=== PATIENT | female | born 1975 | race Hispanic/Latino ===

== ENCOUNTER 2016-05-03 13:02 | Emergency (ER) | payer OTHER ==
[~2016-05-03] VITALS: Ht 172.7 cm; Wt 89.4 kg
[~2016-05-03 13:02] MED LIST: AMOXIL500 MG PO; AUGMENTIN 875-1 EACH PO; CYCLOBENZAPRINE5 M2 PO; FLEXERIL PO; GUAIFENESIN-COD10 ML PO; METRONIDAZOLE500 MG PO; NEXIUM 40MG40 MG PO; PERCOCET 5-3251 EACH PO; PRENATAL1 TA2 PO
--- NOTE | 2016-05-03 15:28 | ED GENERAL ADULT ---
History of Present Illness General Chief Complaint: General Adult Stated Complaint: LUNDBERG X 4DAYS, R SIDED LOW BACK PAIN,CONSTIPATION Source: patient Exam Limitations: no limitations Vital Signs & Intake/Output Vital Signs & Intake/Output Vital Signs Date Time Temp Pulse Resp B/P Pulse O2 O2 Flow FiO2 Ox Delivery Rate 05/03 1734 98.4 84 18 130/74 99 Room Air 05/03 1317 97.7 78 16 128/82 97 Room Air ED Intake and Output 05/04 0000 05/03 1200 Intake Total 1000 Output Total Balance 1000 Intake, IV 1000 Patient 197 lb Weight Allergies Coded Allergies: NO KNOWN ALLERGIES (09/27/13) Reconcile Medications Amoxicillin/Potassium Clav (Augmentin 875-125 Tablet) 875 MG-125 MG TABLET 1 TAB PO BID URI Butalb/Acetaminophen/Caffeine (Fioricet 50-300-40 MG Capsule) 50 MG-300 MG-40 MG CAPSULE 1 TAB PO TID PRN HEADACHES Cyclobenzaprine HCl 5 MG TABLET 1 TAB PO QHS PRN MUSCLE SPASM Oxycodone HCl/Acetaminophen (Percocet 5-325 MG Tablet) 1 EACH TABLET 1 TAB PO Q6 PRN PAIN Robitussin AC (Guaifenesin-Codeine Syrup) 200 MG-20 MG/10 ML LIQUID 10 ML PO Q6HR PRN COUGH Triage Note: PT STATES SHE HAS A LUNDBERG THAT HAS BEEN GOING ON FOR 4 DAYS. PT STATES SHE HAS BEEN TAKING MOTRIN AND THE PAIN GOES AWAY BUT RETURNS SHORTLY AFTER. PT ALSO HAVING BACK PAIN AND STATES HER ACID REFLUX IT VERY BAD LATELY. Triage Nurses Notes Reviewed? yes Onset: Gradual Duration: day(s): (4) Timing: remote history Injury Environment: home Severity: moderate Severity Numbers: 6 No Modifying Factors: none : No Patient currently breastfeeds: No HPI: Patient is a 41-year-old female presenting to the emergency department with chief complaint of frontal throbbing headache this been going on for the past 4 days. She reports gradual in onset. Moderate in nature. Throbbing. Has been using Motrin with little relief. Denies any nausea or vomiting. No visual changes. History of similar headaches in the past but does not get migraines. She also reports generalized malaise, body aches and fatigue. She reports that when she tries to eat her stomach feels "burning". Denies any change in bowel habits. Denies any urinary frequency does report urinary hesitancy. [place] she urinates she feels like it doesn't empty KEMAL. Denies any change in the urine color. No hematuria. She also reports right low back pain. History of chronic back pain and she's had this pain in the past. Denies any new injury. Pain does not radiate. Pain is achy throbbing in the low back. Worse with movement and palpation. (ADELE ACEVEDO) Past History Travel History Traveled to [place] past 21 day No Medical History Any Pertinent Medical History? see below for history Neurological: NONE EENT: NONE Cardiovascular: NONE Respiratory: asthma Gastrointestinal: GERD Hepatic: NONE Renal: NONE Musculoskeletal: chronic back pain, osteoarthritis Psychiatric: NONE Endocrine: NONE Blood Disorders: NONE Cancer(s): NONE Surgical History Surgical History: non-contributory Psychosocial History What is your primary language Japanese Tobacco Use: Never used ETOH Use: occasional use Illicit Drug Use: denies illicit drug use Family History Hx Contributory? No (ADELE ACEVEDO) Review of Systems Review of Systems Constitutional: Reports: malaise. Comments Review of systems: See HPI, All other systems negative. Constitutional, no fever or weight loss HEENT: No visual changes no sore throat no congestion Cardiovascular: No chest pain ,palpitation , orthopnea or ankle swelling Skin, no jaundice no rashes Respiratory: No dyspnea cough sputum or hemoptysis GI: No nausea no vomiting : No dysuria No hematuria Muscle skeletal: no neck pain, Neurologic: No numbness no confusion Psych: No stress anxiety or depression,. Heme/endocrine: No bruising no bleeding no polyuria or polydipsia Immunology: No splenectomy or history of AIDS (ADELE ACEVEDO) Physical Exam Physical Exam General Appearance: well developed/nourished, no apparent distress, alert, awake , comfortable Comments: Well-developed well-nourished person in no acute distress HEENT: Normal EENT exam, extraocular motion intact, no nystagmus. Pupils equally round and reactive to light and accommodation. Nose is atraumatic. External auditory canal and Tympanic membranes clear. Pharynx normal. No swelling or edema. Neck: Supple, no lymphadenopathy, normal range of motion without pain or tenderness Back: Tender to palpation in the right lumbar para spinal region, no CVA tenderness. Limited range of motion secondary to pain especially with forward flexion. Cardiovascular: Regular rate and rhythms no murmurs rubs or gallops, normal JVP Respiratory: Chest nontender. No respiratory distress.breath sounds clear to auscultation bilaterally Abdomen: Soft, nontender nondistended, no appreciable organomegaly. Normal bowel sounds. No ascites, no rebound or guarding. Extremity: No edema Neuro: Alert oriented x3, motor sensory normal, cranial nerves II through XII grossly intact. Skin: No appreciable rash on exposed skin, skin is warm and dry. Psych: Mood and affect is normal, memory and judgment is normal. Core Measures ACS in differential dx? No CVA/TIA Diagnosis: No Severe Sepsis Present: No Septic Shock Present: No (YAW TALLEY,ADELE) Progress Differential Diagnoses I considered the following diagnoses in my evaluation of the patient: Viral syndrome, electrolyte abnormality, migraine headache, tension headache, dehydration, gastritis, pancreatitis Plan of Care: Orders Procedure Date/time Status Regular Diet 05/04 B Active COMPREHENSIVE METABOLIC PANEL 05/03 1523 Complete CBC WITHOUT DIFFERENTIAL 05/03 1523 Complete URINALYSIS 05/03 1451 Complete URINE 05/03 1447 Complete Laboratory Tests 05/03/16 1547: Anion Gap 10, Estimated GFR > 60, BUN/Creatinine Ratio 15.6, Glucose 86, Calcium 9.1, Total Bilirubin 0.5, AST 19, ALT 23, Alkaline Phosphatase 71, Total Protein 7.6, Albumin 4.1, Globulin 3.5, Albumin/Globulin Ratio 1.2, CBC w Diff NO MAN DIFF REQ, RBC 4.75, MCV 90.3, MCH 30.5, RDW 12.6, MPV 8.5, Gran % 62.7, Lymphocytes % 26.3, Monocytes % 6.5, Eosinophils % 3.6, Basophils % 0.9, Absolute Granulocytes 5.9, Absolute Lymphocytes 2.5, Absolute Monocytes 0.6, Absolute Eosinophils 0.3, Absolute Basophils 0.1, PUBS MCHC 33.7 05/03/16 1450: Urine Test NEGATIVE 05/03/16 1450: Urine Color YEL, Urine Clarity CLEAR, Urine pH 6.0, Ur Specific [place] 1.025, Urine Protein NEG, Urine Ketones NEG, Urine Nitrite NEG, Urine Bilirubin NEG, Urine Urobilinogen 0.2, Ur Leukocyte Esterase NEG, Ur Microscopic EXAM NOT REQUIRED, Urine Hemoglobin NEG, Urine Glucose NEG 05/03/16 1447: Urine Total Volume Cancelled, Ur Sodium 24 Hour Cancelled, Ur Potassium 24 Hour Cancelled Initial ED EKG: none Comments: 05/03/2016 5:03:25 PM patient feeling much better after IV hydration, Benadryl, Toradol and Zofran. Headache is now gone. She was informed of all episodes. Likely viral syndrome or tension headache. Patient will be treated with by mouth stat, educated on increasing fluids. (ADELE ACEVEDO) Departure Departure Time of Disposition: 170 Disposition: HOME OR SELF CARE Condition: Stable Clinical Impression Primary Impression: Headache Qualifiers: Headache type: unspecified Headache chronicity pattern: unspecified pattern Intractability: not intractable Qualified Code: R51 - Headache Secondary Impressions: Back pain Qualifiers: Back pain location: low back pain Chronicity: chronic Back pain laterality: right Sciatica presence: without sciatica Qualified Codes: M54.5 - Low back pain; G89.29 - Other chronic pain Referrals: JETHRO THORNE APRN (PCP/Family) Additional Instructions: Follow-up with your primary care physician call to make an appointment. Increase fluids. Take Fioricet as prescribed for headaches. Return for worsening symptoms or concerns. Departure Forms: Customer Survey General Discharge Information Prescriptions: Current Visit Scripts Butalb/Acetaminophen/Caffeine (Fioricet 50-300-40 MG Capsule) 1 TAB PO TID PRN HEADACHES #10 TAB (ADELE ACEVEDO) PA/INTEGRITY DIRECTOR Co-Sign Statement Statement: ED Attending supervision documentation- [] I saw and evaluated the patient. I have also reviewed all the pertinent lab results and diagnostic results. I agree with the findings and the plan of care as documented in the PA's/INTEGRITY DIRECTOR's documentation. [X] I have reviewed the ED Record and agree with the PA's/INTEGRITY DIRECTOR's documentation. [] Additions or exceptions (if any) to the PAs/INTEGRITY DIRECTOR's note and plan are summarized below: [] (SHIV STONER,AHMET) Critical Care Note Critical Care Note Critical Care Time: non-applicable (ADELE ACEVEDO)
[2016-05-03 16:03] LABS: ABSOLUTE BASOPHIL COUNT 0.1 /CUMM (0.0-0.2); ABSOLUTE GRANULOCYTE CT 5.9 /CUMM (1.4-6.5); BASOPHIL % 0.9 % (0.0-2.0); MEAN CORPUSCULAR HGB 30.5 PG (27.0-31.0)
[2016-05-03 16:06] LABS: ABSOLUTE EOSINOPHIL COUNT 0.3 /CUMM (0.0-0.7); ABSOLUTE LYMPH COUNT 2.5 /CUMM (1.2-3.4); ABSOLUTE MONOCYTE COUNT 0.6 /CUMM (0.10-0.60); EOSINOPHIL % 3.6 % (0-5); GRANULOCYTE % 62.7 % (42.2-75.2); HEMATOCRIT 42.9 % (37-47); MEAN CORPUSCULAR HGB CONC 33.7 G/DL (33.0-37.0); MEAN CORPUSCULAR VOLUME 90.3 FL (81.0-99.0); PLATELET COUNT 300 /CUMM (130-400); RBC DISTRIBUTION WIDTH 12.6 % (11.5-14.5); RED BLOOD CELL CT 4.75 /CUMM (4.20-5.40); WHITE BLOOD CELL COUNT 9.4 /CUMM (4.8-10.8)
[2016-05-03 16:26] LABS: MEAN PLATELET VOLUME 8.5 FL (7.4-10.4)
[2016-05-03] MEDS ORDERED: FIORICET 50-301 EACH PO (17:07)
[2016-05-03 17:34] VITALS: BP 130/74
== END 2016-05-03 17:08 ==
LOC: ERH 13:02
PROVIDERS: Physician Assistant
DX: R51 Headache (principal); M54.5 Low back pain
CPT/HCPCS: 81003; 81025; 96374; 96375; J1200; J1885; J2405

== ENCOUNTER 2016-05-06 13:14 | Emergency (ER) | payer OTHER ==
[~2016-05-06] VITALS: Ht 152.4 cm; Wt 89.8 kg
[~2016-05-06 13:14] MED LIST changes: +FIORICET 50-301 EACH PO
--- NOTE | 2016-05-06 14:38 | ED GI/GU/ABDOMINAL COMPLAINT ---
History of Present Illness General Chief Complaint: Abdominal Pain/Flank Pain Stated Complaint: BACK PAIN; HEADACHE; ABD PAIN Source: patient Exam Limitations: no limitations Vital Signs & Intake/Output Vital Signs & Intake/Output Vital Signs Date Time Temp Pulse Resp B/P Pulse O2 O2 Flow FiO2 Ox Delivery Rate 05/06 1520 97.2 68 18 126/78 99 Room Air 05/06 1328 97.7 82 18 149/80 99 Room Air Allergies Coded Allergies: NO KNOWN ALLERGIES (09/27/13) Reconcile Medications Cyclobenzaprine HCl 10 MG TABLET 1 TAB PO TID SPASMS Hydrocodone/Acetaminophen (Hydrocodon-Acetaminophen 5-325) 5 MG-325 MG TABLET 1-2 TAB PO Q4-6 PRN PRN pain Triage Note: PT STATES THAT SHE HAS LOW BACK PAIN AND MID ABD CRAMPING FOR ABOUT 1 WEEK , STATES THAT SHE WAS SEEN HERE FOR HEADACHE 2 DAYS AGO AND STATES THAT SHE TOLD THEM 2 DAYS AGO HER BACK AND ABD WERE BURNING HER. PT CRYING AT TRIAGE AND STATES THAT SHE IS A SINGLE MOM AND IS CONCERNED THAT THERE IS SOMETHING WRONG WITH HER INTESTINES. Triage Nurses Notes Reviewed? yes ? n Is pt currently ? No Onset: Abrupt Duration: day(s):, constant Timing: recent history Quality/Severity: moderate, sharpness, severe Radiation: no radiation Activities at Onset: none Prior Abdominal Problems: none No Modifying Factors: none HPI: 41-year-old female comes into emergency room with persistent back pain for 4 days of abdominal pain for 2 days. Patient was seen here the other day for associated headaches as well. Patient reports that she's had persistent low back pain. Pain is worse with range of motion. Denies any fever chills vomiting. Denies any changes in bowel movement or appetite changes. Denies any vaginal discharge. Patient reports some mild urgency with urination. Denies any dysuria. Previous history of tubal ligation. (RADHA CHRISTIANSON) Past History Travel History Traveled to [place] past 21 day No Medical History Any Pertinent Medical History? see below for history Neurological: NONE EENT: NONE Cardiovascular: NONE Respiratory: asthma Gastrointestinal: GERD Hepatic: NONE Renal: NONE Musculoskeletal: chronic back pain, osteoarthritis Psychiatric: NONE Endocrine: NONE Blood Disorders: NONE Cancer(s): NONE Surgical History Surgical History: , tubal ligation Psychosocial History What is your primary language Citizen [place] Tobacco Use: Never used ETOH Use: denies use Illicit Drug Use: denies illicit drug use Family History Hx Contributory? No (RADHA CHRISTIANSON) Review of Systems Review of Systems Constitutional: Reports: no symptoms. EENTM: Reports: no symptoms. Respiratory: Reports: no symptoms. Cardiovascular: Reports: no symptoms. GI: Reports: see HPI. Genitourinary: Reports: no symptoms. Musculoskeletal: Reports: no symptoms. Skin: Reports: no symptoms. Neurological/Psychological: Reports: no symptoms. Hematologic/Endocrine: Reports: no symptoms. Immunologic/Allergic: Reports: no symptoms. All Other Systems: Reviewed and Negative (RADHA CHRISTIANSON) Physical Exam Physical Exam General Appearance: well developed/nourished, no apparent distress, alert, awake Head: atraumatic, normal appearance Eyes: Bilateral: normal appearance, EOMI. Ears, Nose, Throat, Mouth: hearing grossly normal, moist mucous membrane Neck: normal inspection Respiratory: normal breath sounds, no respiratory distress Cardiovascular: regular rate/rhythm Gastrointestinal: soft, tenderness (mild across lower abdomen) Back: normal inspection Extremities: normal range of motion Neurologic/Psych: awake, alert, oriented x 3, normal gait, normal mood/affect Skin: intact, normal color Core Measures ACS in differential dx? No Severe Sepsis Present: No Septic Shock Present: No (RADHA CHRISTIANSON) Progress Differential Diagnosis: AAA, AMI, appendicitis, biliary colic, bowel obstruction , cholecystitis, diverticulitis, ectopic , gastritis, hepatitis, hernia , hemorrhoids, inflamm bowel dis, intrauterine , kidney stone, ovarian cyst, ovarian torsion, pancreatitis, PID/cervicitis, peptic ulcer, PUD/GERD, SBO , threatened AB, UTI/pyelo, muscle strain, degenerative disease, arthritis, Plan of Care: Orders Procedure Date/time Status URINALYSIS 05/06 1426 Complete COMPREHENSIVE METABOLIC PANEL 05/06 1425 Complete CBC WITHOUT DIFFERENTIAL 05/06 1425 Complete Laboratory Tests 05/06/16 1446: Anion Gap 8, Estimated GFR > 60, BUN/Creatinine Ratio 12.2, Glucose 76, Calcium 9.2, Total Bilirubin 0.5, AST 19, ALT 16, Alkaline Phosphatase 60, Total Protein 7.3, Albumin 3.9, Globulin 3.4, Albumin/Globulin Ratio 1.1, CBC w Diff NO MAN DIFF REQ, RBC 4.49, MCV 91.6, MCH 30.6, RDW 12.6, MPV 8.3, Gran % 64.9, Lymphocytes % 26.2, Monocytes % 5.6, Eosinophils % 2.7, Basophils % 0.6, Absolute Granulocytes 5.6, Absolute Lymphocytes 2.3, Absolute Monocytes 0.5, Absolute Eosinophils 0.2, Absolute Basophils 0.1, PUBS MCHC 33.4 05/06/16 1426: Urine Color YEL, Urine Clarity CLEAR, Urine pH 6.0, Ur Specific [place] 1.015, Urine Protein NEG, Urine Ketones NEG, Urine Nitrite NEG, Urine Bilirubin NEG, Urine Urobilinogen 0.2, Ur Leukocyte Esterase NEG, Ur Microscopic EXAM NOT REQUIRED, Urine Hemoglobin NEG, Urine Glucose NEG Diagnostic Imaging: Viewed by Me: CT Scan. Discussed w/RAD: CT Scan. Radiology Impression: EXAM TYPE: CAT - CT ABD & PELVIS W IV CONTRAST EXAMINATION : CT ABDOMEN AND PELVIS WITH CONTRAST CLINICAL INFORMATION: Abdominal pain. COMPARISON: None. TECHNIQUE: Multidetector CT volumetric acquisition of the abdomen and pelvis was performed after the administration of 95 mL of Optiray 320. The data set was reformatted in the sagittal and coronal planes and reviewed on an independent workstation. DLP: 399.47 mGy-cm. FINDINGS: LOWER CHEST: Included lung bases unremarkable. LIVER, GALLBLADDER, BILIARY TREE: Liver normal size and attenuation. In hepatic segment 8, a 2.6 x 1.4 cm low- attenuation mass is seen with indistinct margins and peripheral nodular enhancement. Findings are most likely related to an incidental hepatic hemangioma. The liver is otherwise unremarkable. No intra-or extrahepatic ductal dilatation. Hepatic and portal veins patent. Gallbladder partially distended and within normal limits. PANCREAS: Normal. No ductal dilatation, mass, or surrounding stranding. SPLEEN: Normal size and appearance. Splenic vein patent. ADRENAL GLANDS AND KIDNEYS: Adrenal glands normal. Kidneys bilaterally symmetric in size and function. No focal mass, hydronephrosis, nephrolithiasis or perinephric stranding. URETERS AND BLADDER: Ureters decompressed and within normal limits. Bladder partially distended and within normal limits. PELVIC ORGANS: Uterus unremarkable. Small nabothian cyst is seen in the cervix. Right ovary appears cystic, most consistent with physiologic findings. Left ovary unremarkable. GASTROINTESTINAL TRACT: Normal. Small and large bowel loops decompressed. Appendix in right lower quadrant normal. LYMPHOVASCULAR STRUCTURES : Abdominal aorta normal in caliber. No periaortic collections. No abdominal or pelvic adenopathy or free fluid collection. 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 IMPRESSION: 1. No acute intra-abdominal or pelvic process seen. 2. Incidental 2.6 x 1.4 cm low-attenuation mass in hepatic segment 8. This is incompletely characterized but may represent a small hemangioma. Nonemergent dynamic contrast-enhanced MRI scan of the abdomen is recommended to confirm this opinion. DICTATED BY: DEYVI STONER,AYDE Gagnon DATE/TIME DICTATED:05/06/161502 PERSONAL COMPANION:THO DATE/TIME TRANSCRIBED:05/06/161502 Initial ED EKG: none Comments: 05/06/2016 3:59:07 PM Patient clinically looks well. Nontoxic-appearing. In no apparent distress. No acute findings and workup. Back pain is more consistent with muscular pain. Patient has no vaginal discharge. No need for pelvic exam. Return if any other concerns. (TALYA TALLEY,RADHA) Departure Departure Disposition: HOME OR SELF CARE Condition: Stable Clinical Impression Primary Impression: Abdominal pain Secondary Impressions: Back pain Referrals: JETHRO THORNE APRN (PCP/Family) Additional Instructions: Take Vicodin and Flexeril as prescribed. Follow-up with GI doctor and TRAMPOLINE TEAM COACH doctor. Return if any other concerns worsening symptoms. Please go over all results of today's visit with your primary care doctor. Contact your primary care doctor to let them know you were here in the emergency room. There may be nonspecific findings which may not be related to your visit today here in the emergency room but may require further evaluation and chronic monitoring by your primary care doctor. If you had a laceration today the chance of foreign body always remains. You should follow-up with your primary care doctor for recheck in 3-5 days for a wound check. If you had an x-ray done there is a chance that a fracture could have been missed on initial read and you should follow-up with your primary care doctor for repeat x-rays if symptoms persist. If your blood pressure was elevated here in the emergency room please have rechecked by her primary care doctor within the next 48 hours by your primary care doctor. If you were prescribed a narcotic here in the emergency room or any type of controlled substances you're not allowed to drive while taking this medication or operate any type of heavy machinery. Narcotics can make you feel lightheaded dizziness nausea and can cause constipation. You may need to continuous pickling line pickler a stool softener. Thank you for choosing [facility] emergency room. Please return to the emergency room immediately if you have any other concerns worsening of symptoms. Departure Forms: Customer Survey General Discharge Information Prescriptions: Current Visit Scripts Hydrocodone/Acetaminophen (Hydrocodon-Acetaminophen 5-325) 1-2 TAB PO Q4-6 PRN PRN pain #15 TAB Cyclobenzaprine HCl 1 TAB PO TID #20 TAB (RADHA CHRISTIANSON) PA/PUBLIC POLICY ANALYST Co-Sign Statement Statement: ED Attending supervision documentation- [] I saw and evaluated the patient. I have also reviewed all the pertinent lab results and diagnostic results. I agree with the findings and the plan of care as documented in the PA's/PUBLIC POLICY ANALYST's documentation. [X] I have reviewed the ED Record and agree with the PA's/PUBLIC POLICY ANALYST's documentation. [] Additions or exceptions (if any) to the PAs/PUBLIC POLICY ANALYST's note and plan are summarized below: [] (JAVAD STONER,IAN Banda)
[2016-05-06 15:00] LABS: ABSOLUTE BASOPHIL COUNT 0.1 /CUMM (0.0-0.2); ABSOLUTE EOSINOPHIL COUNT 0.2 /CUMM (0.0-0.7); ABSOLUTE GRANULOCYTE CT 5.6 /CUMM (1.4-6.5); ABSOLUTE LYMPH COUNT 2.3 /CUMM (1.2-3.4); ABSOLUTE MONOCYTE COUNT 0.5 /CUMM (0.10-0.60); BASOPHIL % 0.6 % (0.0-2.0); EOSINOPHIL % 2.7 % (0-5); GRANULOCYTE % 64.9 % (42.2-75.2); HEMATOCRIT 41.1 % (37-47); MEAN CORPUSCULAR HGB 30.6 PG (27.0-31.0); MEAN CORPUSCULAR HGB CONC 33.4 G/DL (33.0-37.0); MEAN CORPUSCULAR VOLUME 91.6 FL (81.0-99.0); MEAN PLATELET VOLUME 8.3 FL (7.4-10.4); PLATELET COUNT 263 /CUMM (130-400); RBC DISTRIBUTION WIDTH 12.6 % (11.5-14.5); RED BLOOD CELL CT 4.49 /CUMM (4.20-5.40); WHITE BLOOD CELL COUNT 8.6 /CUMM (4.8-10.8)
--- NOTE | 2016-05-06 15:17 | CT SCAN REPORT ---
EXAMINATION: CT ABDOMEN AND PELVIS WITH CONTRAST CLINICAL INFORMATION: Abdominal pain. COMPARISON: None. TECHNIQUE: Multidetector CT volumetric acquisition of the abdomen and pelvis was performed after the administration of 95 mL of Optiray 320. The data set was reformatted in the sagittal and coronal planes and reviewed on an independent workstation. DLP: 399.47 mGy-cm. FINDINGS: LOWER CHEST: Included lung bases unremarkable. LIVER, GALLBLADDER, BILIARY TREE: Liver normal size and attenuation. In hepatic segment 8, a 2.6 x 1.4 cm low-attenuation mass is seen with indistinct margins and peripheral nodular enhancement. Findings are most likely related to an incidental hepatic hemangioma. The liver is otherwise unremarkable. No intra-or extrahepatic ductal dilatation. Hepatic and portal veins patent. Gallbladder partially distended and within normal limits. PANCREAS: Normal. No ductal dilatation, mass, or surrounding stranding. SPLEEN: Normal size and appearance. Splenic vein patent. ADRENAL GLANDS AND KIDNEYS: Adrenal glands normal. Kidneys bilaterally symmetric in size and function. No focal mass, hydronephrosis, nephrolithiasis or perinephric stranding. URETERS AND BLADDER: Ureters decompressed and within normal limits. Bladder partially distended and within normal limits. PELVIC ORGANS: Uterus unremarkable. Small nabothian cyst is seen in the cervix. Right ovary appears cystic, most consistent with physiologic findings. Left ovary unremarkable. GASTROINTESTINAL TRACT: Normal. Small and large bowel loops decompressed. Appendix in right lower quadrant normal. LYMPHOVASCULAR STRUCTURES: Abdominal aorta normal in caliber. No periaortic collections. No abdominal or pelvic adenopathy or free fluid collection. 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 IMPRESSION: 1. No acute intra-abdominal or pelvic process seen. 2. Incidental 2.6 x 1.4 cm low-attenuation mass in hepatic segment 8. This is incompletely characterized but may represent a small hemangioma. Nonemergent dynamic contrast-enhanced MRI scan of the abdomen is recommended to confirm this opinion.
[2016-05-06 15:20] VITALS: BP 126/78
[2016-05-06] MEDS ORDERED: HYDROCODON-ACE1 EAC2 PO (15:27)
[2016-05-06] MEDS ORDERED: CYCLOBENZAPRINE10 M1 PO (15:27)
== END 2016-05-06 16:00 ==
LOC: ERH 13:14
PROVIDERS: Physician Assistant Medical
DX: R10.9 Unspecified abdominal pain (principal); M54.9 Dorsalgia, unspecified
CPT/HCPCS: 74177; 81003; 96374; 96375; J1885

== ENCOUNTER 2017-10-16 12:56 | Emergency (ER) | payer OTHER ==
[~2017-10-16] VITALS: Ht 172.7 cm; Wt 83.9 kg
[~2017-10-16 12:56] MED LIST changes: +CYCLOBENZAPRINE10 M1 PO; +HYDROCODON-ACE1 EAC2 PO; +PANTOPRAZOLE SO40 M1 PO
[2017-10-16 13:13] VITALS: BP 123/79
[2017-10-16 14:05] LABS: ABSOLUTE BASOPHIL COUNT 0.1 /CUMM (0.0-0.2); ABSOLUTE EOSINOPHIL COUNT 0.2 /CUMM (0.0-0.7); ABSOLUTE GRANULOCYTE CT 4.7 /CUMM (1.4-6.5); ABSOLUTE LYMPH COUNT 2.9 /CUMM (1.2-3.4); ABSOLUTE MONOCYTE COUNT 0.7 /CUMM (0.10-0.60); BASOPHIL % 0.8 % (0.0-2.0); EOSINOPHIL % 2.8 % (0-5); GRANULOCYTE % 54.6 % (42.2-75.2); HEMATOCRIT 43.4 % (37-47); MEAN CORPUSCULAR HGB 30.4 PG (27.0-31.0); MEAN CORPUSCULAR HGB CONC 33.1 G/DL (33.0-37.0); MEAN CORPUSCULAR VOLUME 91.9 FL (81.0-99.0); MEAN PLATELET VOLUME 8.7 FL (7.4-10.4); PLATELET COUNT 274 /CUMM (130-400); RBC DISTRIBUTION WIDTH 13.3 % (11.5-14.5); RED BLOOD CELL CT 4.72 /CUMM (4.20-5.40); WHITE BLOOD CELL COUNT 8.6 /CUMM (4.8-10.8)
--- NOTE | 2017-10-16 14:51 | RADIOLOGY REPORT ---
EXAMINATION: XR CHEST CLINICAL INFORMATION: Chest pain COMPARISON: 06/17/2012 TECHNIQUE: 2 views of the chest were obtained. FINDINGS: The lungs are well expanded. There is no focal consolidation, edema, or effusion. No pneumothorax. The cardiomediastinal silhouette is within normal limits. No acute osseous abnormality. IMPRESSION: No acute pulmonary findings.
--- NOTE | 2017-10-16 15:21 | ED INFLUENZA/URI COMPLAINT ---
History of Present Illness General Chief Complaint: General Adult Stated Complaint: URI AND CHEST DISCOMFORT Source: patient, old records Exam Limitations: no limitations Vital Signs & Intake/Output Vital Signs & Intake/Output Vital Signs Date Time Temp Pulse Resp B/P B/P Pulse O2 O2 Flow FiO2 Mean Ox Delivery Rate 10/16 1313 97.8 92 18 123/79 100 Room Air Room Air Allergies Coded Allergies: ibuprofen (From MOTRIN) (Intermediate, USED ALOT IN THE PAST 02/17/17) Reconcile Medications Albuterol Sulfate (Proair Hfa) 90 MCG HFA.AER.AD 2 PUF INH Q4-6 PRN PRN cough Naproxen (Anaprox Ds) 550 MG TABLET 1 TAB PO BID pain Pantoprazole Sodium 40 MG TABLET.DR 1 TAB PO DAILY GI (Reported) Promethazine HCl/Codeine (Prometh-Codein 6.25-10 MG/5 Ml) 6.25 MG-10 MG/5 ML (5 ML) SYRUP 5-10 ML PO Q6P PRN cough Triage Note: PT TO ED WITH C/O DRY COUGH AND INTERMITTENT LEFT CHEST PAIN X 3 DAYS. PT EVAL IN TRIAGE BY MARIE TALLEY Triage Nurses Notes Reviewed? yes Onset: 3 days Duration: day(s):, constant, continues in ED Timing: recent history Severity: mild, moderate Prior Episodes/Possible Cause: illness exposure No Modifying Factors: none Associated Symptoms: chest pain, cough, muscle aches LMP (ages 10-50): unknown : No Patient currently breastfeeds: No HPI: 3 days prior to admission patient complains of nasal congestion nonproductive cough sharp substernal chest pain muscle aches. She denies fever chills nausea vomiting diarrhea abdominal pain shortness of breath headache dysuria rash bleeding. Past History Travel History Traveled to [place] past 21 day No Medical History Any Pertinent Medical History? see below for history Neurological: NONE EENT: NONE Cardiovascular: NONE Respiratory: asthma Gastrointestinal: GERD Hepatic: NONE Renal: NONE Musculoskeletal: chronic back pain, osteoarthritis Psychiatric: NONE Endocrine: NONE Blood Disorders: NONE Cancer(s): NONE Surgical History Surgical History: , tubal ligation Psychosocial History What is your primary language [place] Tobacco Use: Never used ETOH Use: denies use Illicit Drug Use: denies illicit drug use Family History Hx Contributory? No Review of Systems Review of Systems Constitutional: Reports: see HPI, malaise. EENTM: Reports: see HPI, nasal congestion. Respiratory: Reports: see HPI, cough. Denies: sputum production. Cardiovascular: Reports: see HPI, chest pain. GI: Reports: no symptoms. Genitourinary: Reports: no symptoms. Musculoskeletal: Reports: no symptoms. Skin: Reports: no symptoms. Neurological/Psychological: Reports: no symptoms. Hematologic/Endocrine: Reports: no symptoms. Immunologic/Allergic: Reports: no symptoms. All Other Systems: Reviewed and Negative Physical Exam Physical Exam General Appearance: well developed/nourished, alert, awake, anxious, mild distress Head: atraumatic, normal appearance Eyes: Bilateral: normal appearance, PERRL, EOMI. Ears, Nose, Throat: moist mucous membrane, nasal congestion, nasal drainage, pharyngeal erythema Neck: normal inspection, supple, full range of motion, trachea midline, lymphadenopathy (R), lymphadenopathy (L) Respiratory: normal breath sounds, chest non-tender, no respiratory distress, quiet respiration, lungs clear Cardiovascular: regular rate/rhythm, normal peripheral pulses, norml femoral pulses equa Peripheral Pulses: 4+ carotid (R), 4+ carotid (L) Gastrointestinal: normal bowel sounds, soft, non-tender, no organomegaly Back: normal inspection, normal range of motion, no vertebral tenderness Extremities: normal inspection, normal capillary refill, normal range of motion, no edema Neurologic/Psych: no motor/sensory deficits, awake, alert, oriented x 3, normal gait, normal mood/affect, institutional custodian II-XII nml as tested Reflexes: 2+: bicep (R), bicep (L). Skin: intact, normal color, warm/dry Lymphatic: adenopathy Core Measures Sepsis Present: No Sepsis Focused Exam Completed? No Progress Differential Diagnosis: influenza, otitis, pneumonia, sinusitis Plan of Care: Orders Procedure Date/time Status TROPONIN LEVEL 10/16 1316 Complete HUMAN BETA HCG SCREEN 10/16 1316 Complete COMPREHENSIVE METABOLIC PANEL 10/16 1316 Complete CBC WITHOUT DIFFERENTIAL 10/16 1316 Complete EKG 10/16 1316 Active Laboratory Tests 10/16/17 1345: Anion Gap 13, Estimated GFR > 60, BUN/Creatinine Ratio 16.7, Glucose 92, Calcium 9.1, Total Bilirubin 0.5, AST 19, ALT 33, Alkaline Phosphatase 58, Troponin I < 0.01, Total Protein 7.5, Albumin 4.0, Globulin 3.5, Albumin/Globulin Ratio 1.1, Total Beta HCG NEGATIVE, CBC w Diff NO MAN DIFF REQ, RBC 4.72, MCV 91.9, MCH 30.4, MCHC 33.1, RDW 13.3, MPV 8.7, Gran % 54.6, Lymphocytes % 33.9, Monocytes % 7.9, Eosinophils % 2.8, Basophils % 0.8, Absolute Granulocytes 4.7, Absolute Lymphocytes 2.9, Absolute Monocytes 0.7 H, Absolute Eosinophils 0.2, Absolute Basophils 0.1 Diagnostic Imaging: Viewed by Me: Radiology Read. Discussed w/RAD: Radiology Read. CXR Impression: no acute abnormality, no infiltrates, normal size heart, normal mediastinum Initial ED EKG: normal axis, normal intervals, normal p-waves, normal QRS complex, normal sinus rhythm, no ST T wave changes Rhythm Strip: normal sinus rhythm Departure Departure Time of Disposition: 1523 Disposition: HOME OR SELF CARE Condition: Stable Clinical Impression Primary Impression: Viral syndrome Secondary Impressions: Chest pain Referrals: Magdaleno Sheppard APRN (PCP/Family) Departure Forms: Customer Survey General Discharge Information Prescriptions: Current Visit Scripts Naproxen (Anaprox Ds) 1 TAB PO BID #60 TAB Ref 2 Albuterol Sulfate (Proair Hfa) 2 PUF INH Q4-6 PRN PRN cough #1 INHAL Promethazine HCl/Codeine (Prometh-Codein 6.25-10 MG/5 Ml) 5-10 ML PO Q6P PRN cough #240 ML
[2017-10-16] MEDS ORDERED: PROMETH-CODEIN 65 ML PO (15:27)
[2017-10-16] MEDS ORDERED: PROAIR HFA8.5 GM INH (15:27)
[2017-10-16] MEDS ORDERED: ANAPROX DS550 MG PO (15:27)
== END 2017-10-16 15:32 ==
LOC: ERH 12:56
PROVIDERS: Physician Assistant Medical
DX: B34.9 Viral infection, unspecified (principal); R07.89 Other chest pain
CPT/HCPCS: 71046; 93005; 93010